=== PATIENT | female | born 1985 | race Caucasian/White ===

== ENCOUNTER 2024-09-24 14:43 | Inpatient (IN) | payer MEDICAID, SELFPAY ==
[2024-09-24 14:50] VITALS: BP 119/77; PULSE 91; RESP 18; TEMP 36.7; O2SAT 99; BMI 28.0
--- NOTE | 2024-09-24 14:52 | ED.C_ITS ---
HPI - Psych 2 General: Chief Complaint: Psychiatric Symptoms Stated Complaint: 96 Time Seen by Provider: 09/24/24 14:44 History of Present Illness: 39-year-old female who presents to the e mergency room on a 96-hour court ordered hold. She tells me she is not exactly sure why she was served. She says she was very embarrassed because she was served at work. She does tell me she had a history of alcohol and substance abuse but has been in remission for 5 years. She says that she was having menstrual issues and was very depressed and tearful and had called 911. She said she was then being cited for calling 911 but she is unsure why she is here. There are multiple affidavits signed by police. They states she has been calling 911 and an FBI agent and that she smelled like alcohol. It is unclear what she had called 911 or the FBI agent for but they feel she is a danger to herself and the business intelligence reporting analyst agreed Related Data Home Medications ?Medication ?Instructions ?Recorded ?Confirmed dextroamphetamine-amphetamine 10 10 mg PO DAILY 09/24/24 mg tablet (Adderall) paroxetine HCl 20 mg tablet (Paxil) 20 mg PO DAILY 12/1409/24/24 Review of Systems 2 Narrative: Constitutional symptoms: Negative except as documented in HPI. Skin symptoms: Negative except as documented in HPI. Eye symptoms: Negative except as documented in HPI. ENMT symptoms: Negative except as documented in HPI. Respiratory symptoms: Negative except as documented in HPI. Cardiovascular symptoms: Negative except as documented in HPI. Gastrointestinal symptoms: Negative except as documented in HPI. Genitourinary symptoms: Negative except as documented in HPI. Musculoskeletal symptoms: Negative except as documented in HPI. Neurologic symptoms: Negative except as documented in HPI. Psychiatric symptoms: Negative except as documented in HPI. Endocrine symptoms: Negative except as documented in HPI. Physical Exam 2 Narrative: EXAM NARRATIVE: General: Alert, no acute distress. Skin: Warm, dry. Head: Normocephalic, atraumatic. Neck: Supple, trachea midline. Eye: Extraocular movements are intact. Ears, nose, mouth and throat: mucosa moist. Cardiovascular: Regular, Normal peripheral perfusion. Respiratory: Lungs are clear to auscultation, respirations are non-labored, breath sounds are equal, Symmetrical chest wall expansion. Gastrointestinal: Soft, Nontender, Non distended Musculoskeletal: Normal ROM, no deformity. Neurological: Alert and oriented, No focal neurological deficit observed. Psychiatric: Cooperative, appropriate mood & affect. Patient currently denies any homicidal or suicidal ideation. Denies any hallucinations. Course 2 Vital Signs: Vital signs: Vital Signs Temperature 98.1 F 09/24/24 14:50 Pulse Rate 91 09/24/24 14:50 Respiratory Rate 18 09/24/24 14:50 Blood Pressure 119/77 09/24/24 14:50 Pulse Oximetry 99 09/24/24 14:50 Oxygen Delivery Me thod Room Air 09/24/24 14:50 MDM - Psych Medical Decision Making Medical decision making: Differential diagnosis for patient with reported psychosis with plan for psychiatric admission including but not limited to and based on the above HPI, review of systems and physical exam: concerns for infection, alcohol intoxication, cardiac issues or other medical problems prior to psychiatric admission. Orders placed to evaluate differential diagnosis based on the above differential, HPI and physical exam labwork, ekg ordered to evaluate the pathologies and to clear the patient medically prior to psychiatric admission EKG: Time 1550. Rate 73. Normal sinus rhythm, No ST-T changes, no ectopy, normal NC & QRS intervals, This was reviewed and interpreted by myself the ER physician at 1555. Lab Review: Laboratory results were reviewed and interpreted by myself the emergency room physician. - Medically cleared. - EKG shows no ischemic changes. - Blood alcohol level is negative, as well as salicylate and Tylenol. - Drug screen is negative - No signs of infection, urinalysis clear and white count is not elevated - No anemia. - BUN and creatinine are within normal limits. I reviewed the patient's medical record. Consultation: I spoke with Dr. Lambert who is on-call for psychiatry who agrees to admission Assessment and plan: Psychiatric issues -Admission to neuropsychiatric unit for continued evaluation and treatment. - All lab work was reviewed and interpreted personally by myself, the ER physician - Evaluation and treatment of this problem were appropriate in the emergency setting Lab Data 09/24/24 15:03 09/24/24 16:20 Laboratory Results WBC 11.45 10^3/uL (3.29-11.43) H 09/24/24 15:03 RBC 4.53 10^6/uL (3.85-5.65) 09/24/24 15:03 Hgb 14.10 g/dL (11.27-16.99) 09/24/24 15:03 Hct 43.9 % (36-47) 09/24/24 15:03 MCV 96.9 fl (85-98) 09/24/24 15:03 MCH 31.1 pg (27-33) 09/24/24 15:03 MCHC 32.1 g/dL (30-55) 09/24/24 15:03 RDW 11.9 % (12.1-15.1) L 09/24/24 15:03 Plt Count 239 10^3/cmm (157-399) 09/24/24 15:03 MPV 10.6 fL (7.4-10.4) H 09/24/24 15:03 Neut % (Auto) 72.9 % 09/24/24 15:03 Lymph % (Auto) 19.0 % 09/24/24 15:03 [place]ayson % (Auto) 7.0 % 09/24/24 15:03 Eos % (Auto) 0.5 % 09/24/24 15:03 Baso % (Auto) 0.3 % 09/24/24 15:03 Neut # (Auto) 8.34 10^3/uL (1.8-7.7) H 09/24/24 15:03 Lymph # (Auto) 2.2 10^3/uL (0.8-4.8) 09/24/24 15:03 Grayson # (Auto) 0.8 10^3/uL (0.2-0.9) 09/24/24 15:03 Eos # (Auto) 0.1 10^3/uL (0.0-0.8) 09/24/24 15:03 Baso # (Auto) 0.0 10^3/uL (0.0-0.1) 09/24/24 15:03 Nucleated RBC % (auto) 0 % 09/24/24 15:03 Nucleated RBCs # 0.0 /100WBC 09/24/24 15:03 Sodium Cancelled 09/24/24 15:03 Potassium Cancelled 09/24/24 15:03 Chloride Cancelled 09/24/24 15:03 Carbon Dioxide Cancelled 09/24/24 15:03 Anion Gap Cancelled 09/24/24 15:03 BUN Cancelled 09/24/24 15:03 Creatinine Cancelled 09/24/24 15:03 GFR Calculation Cancelled 09/24/24 15:03 Glucose Cancelled 09/24/24 15:03 Calculated Osmolality Cancelled 09/24/24 15:03 Calcium Cancelled 09/24/24 15:03 Total Bilirubin Cancelled 09/24/24 15:03 AST Cancelled 09/24/24 15:03 ALT Cancelled 09/24/24 15:03 Alkaline Phosphatase Cancelled 09/24/24 15:03 Total Protein Cancelled 09/24/24 15:03 Albumin Cancelled 09/24/24 15:03 Globulin Cancelled 09/24/24 15:03 TSH Cancelled 09/24/24 15:03 HCG, Qual Negative (Negative) 09/24/24 15:10 Urine Color Yellow (Yellow) 09/24/24 15:10 Urine Appearance Clear (CLEAR) 09/24/24 15:10 Urine pH 5.0 (5-7) 09/24/24 15:10 Ur Specific [place] 1.019 (1.005-1.030) 09/24/24 15:10 Urine Protein Negative (Negative) 09/24/24 15:10 Urine Glucose (UA) Negative (Normal) 09/24/24 15:10 Urine Ketones Trace (Negative) 09/24/24 15:10 Urine Blood Trace (Negative) A 09/24/24 15:10 Urine Nitrate Negative (Negative) 09/24/24 15:10 Urine Bilirubin Negative (Negative) 09/24/24 15:10 Urine Urobilinogen 0.2 mg/dL (Negative) 09/24/24 15:10 Ur Leukocyte Esterase Negative (Negative) 09/24/24 15:10 Urine RBC None /hpf (0-2) 09/24/24 15:10 Urine WBC 0-4 /hpf (0-5) H 09/24/24 15:10 Ur Squamous Epith Cells 10-15 /hpf (0-5) H 09/24/24 15:10 Amorphous Sediment Not Reportable 09/24/24 15:10 Urine Bacteria None /hpf (NONE) 09/24/24 15:10 Urine Mucus None /hpf 09/24/24 15:10 Salicylates Cancelled 09/24/24 15:03 Urine Opiates Screen Negative ng/mL (Negative) 09/24/24 15:10 Acetaminophen Cancelled 09/24/24 15:03 Ur Barbiturates Screen Negative ng/mL (Negative) 09/24/24 15:10 Ur Phencyclidine Scrn Negative ng/mL (Negative) 09/24/24 15:10 Ur Amphetamines Screen Negative ng/mL (Negative) 09/24/24 15:10 U Benzodiazepines Scrn Negative ng/mL (Negative) 09/24/24 15:10 Urine Cocaine Screen Negative ng/mL (Negative) 09/24/24 15:10 U Marijuana (THC) Screen Negative ng/mL (Negative) 09/24/24 15:10 Ethyl Alcohol Cancelled 09/24/24 15:03 No radiology studies performed this visit Discharge Plan Discharge Patient Disposition: Admitted As Inpatient Admit Provider: Eliel Lambert Clinical Impression: Acute psychosis Condition: Stable Coding Level of Care Code ED 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
[2024-09-24 15:13] LABS: Basophils % 0.3 %; Eosinophils # 0.1 10^3/uL (0.0-0.8); Eosinophils % 0.5 %; Hematocrit 43.9 % (36-47); Lymphocytes # 2.2 10^3/uL (0.8-4.8); Mean Corpuscular HGB Conc 32.1 g/dL (30-55); Mean Corpuscular Hemoglobin 31.1 pg (27-33); Mean Corpuscular Volume 96.9 fl (85-98); Mean Platelet Volume 10.6 fL (7.4-10.4); Monocytes # 0.8 10^3/uL (0.2-0.9); Neutrophils # 8.34 10^3/uL (1.8-7.7); Neutrophils % 72.9 %; Nucleated Red Blood Cells % 0 %; Platelet Count 239 10^3/cmm (157-399); Red Blood Count 4.53 10^6/uL (3.85-5.65); Red Cell Distribution Width 11.9 % (12.1-15.1); White Blood Count 11.45 10^3/uL (3.29-11.43)
--- NOTE | 2024-09-24 15:16 | PC.PHAR ---
Pt gave names of her medications and strength. Called [facility] in [place] and verified drug, strength, day supply and last fill dates.
--- NOTE | 2024-09-24 15:21 | PC.NURSE ---
96 hour hold rights read and reviewed with patient. Cuco from security present during reading of rights. Patient verbalized understandings and copy of rights given to patient.
[2024-09-24 15:22] LABS: Bilirubin Urine Negative (Negative); Blood Urine Trace (Negative); Glucose Urine UA Negative (Normal); Ketones Urine Trace (Negative); Leukocyte Esterase Urine Negative (Negative); Nitrate Urine Negative (Negative); Protein Urine Negative (Negative); Specific Gravity, Urine 1.019 (1.005-1.030); Urine Appearance Clear (CLEAR); Urine Color Yellow (Yellow); Urobilinogen Urine 0.2 mg/dL (Negative)
[2024-09-24 15:24] LABS: HCG Qualitative Urine. Negative (Negative)
[2024-09-24 15:28] LABS: Amphetamines Screen Urine Negative (Negative); Barbiturates Screen Urine Negative (Negative); Benzodiazepines Screen Urine Negative (Negative); Cocaine Screen Urine Negative (Negative); Opiate Screen Urine Negative (Negative); PCP Screen Urine Negative (Negative); THC Screen Urine Negative (Negative)
[2024-09-24 15:30] LABS: Slide Review Slide Review Perform
[2024-09-24 15:36] LABS: WBC Urine 0-4 /hpf (0-5)
[2024-09-24 15:37] LABS: Add Urine Culture? No
--- NOTE | 2024-09-24 15:50 | ECG_ITS ---
[facility] Test Date: 2024-09-24 Pat Name: Edith Stoddard Department: Room: Gender: Female Platemaker: : 1985 Requested By: Corin Beltrán Order Number: [id number] Gonzalez MD: Rubén Xiao M.D. Measurements Intervals [place] Rate: 73 P: 32 TX: 152 QRS: 44 QRSD: 88 T: 42 QT: 358 QTc: 396 Interpretive Statements SINUS RHYTHM No previous ECG available for comparison Electronically Signed On 09-27-2024 18:07:54 PROJECT ASSISTANT by Rubén Xiao M.D. [id number]
[2024-09-24 17:09] LABS: Alanine Aminotransferase 11 U/L (0-33); Albumin Level 4.4 g/dL (3.5-5.2); Alkaline Phosphatase 68 U/L (35-105); Anion Gap 15.5 (5-19); Aspartate Amino Transferase 15 U/L (0-32); Blood Urea Nitrogen 26 mg/dL (6-20); Calcium 9.2 mg/dL (8.5-10.5); Carbon Dioxide 22 mmol/L (22-29); Chloride 104 mmol/L (98-107); Creatinine Clr Calc Pharmacy 163.3051; Glomerular Filtration Rate 138.8 mL/min (90-130); Glucose 99 mg/dL (65-115); Osmolality Calculated 289 mOsm/kg (285-295); Potassium 4.5 mmol/L (3.5-5.1); Salicylate 0.4 mg/dL (3-10); Sodium 137 mmol/L (136-145); Thyroid Stimulating Hormone 1.11 uIU/mL (0.27-4.20); Total Bilirubin 0.2 mg/dL (0.15-1.2); Total Protein 7.4 g/dL (6.6-8.7)
[2024-09-24 17:10] LABS: Acetaminophen < 5.0 ug/mL (10-30); Alcohol Level < 10 mg/dL (0-10)
[2024-09-24 20:01] VITALS: BP 99/65; PULSE 74; O2SAT 95
[2024-09-24 20:23] VITALS: BP 99/65; PULSE 74; O2SAT 95
[2024-09-24 20:24] VITALS: BP 111/78; PULSE 68; RESP 18; TEMP 36.5; O2SAT 100
[2024-09-24 20:57] VITALS: BP 111/78; PULSE 68; RESP 18; TEMP 36.5; O2SAT 100
[2024-09-24] MEDS: ibuprofen 600 mg Tablet PO (20:59)
[2024-09-24] MEDS: hyDROXYzine 25 mg Capsule 50 MG PO (21:00)
[2024-09-25] MEDS: tizanidine 4 mg Tablet 2 MG PO ×3 (00:52→20:54)
[2024-09-25 06:00] VITALS: BP 92/57; PULSE 67; RESP 16; O2SAT 100
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
[2024-09-25] MEDS: flu vacc pf 24-25 (6 mos+) SYRINGE 45 MCG IM (10:02)
[2024-09-25] MEDS: ibuprofen 600 mg Tablet PO ×2 (12:00→17:21)
[2024-09-25 14:00] VITALS: BP 99/62; PULSE 86; RESP 18; TEMP 36.9; O2SAT 98
[2024-09-25] MEDS: hyDROXYzine 25 mg Capsule 50 MG PO (17:21)
[2024-09-25 20:28] VITALS: BP 100/64; PULSE 95; RESP 18; TEMP 36.6; O2SAT 98
[2024-09-26 06:00] VITALS: BP 96/67; PULSE 75; RESP 16; TEMP 36.8; O2SAT 98
[2024-09-26] MEDS: tizanidine 4 mg Tablet 2 MG PO (11:16)
[2024-09-26] MEDS: hyDROXYzine 25 mg Capsule 50 MG PO ×2 (11:17→21:27)
[2024-09-26] MEDS: ibuprofen 600 mg Tablet PO ×2 (11:17→17:02)
--- NOTE | 2024-09-26 12:03 | PC.NURSE ---
NEW ORDERS RECEIVED FROM TO RESTART PAXIL 20MG PO DAILY. ADDERALL IS STILL BEING HELD. DR. NICHOLSON WILL DECIDE IF THAT MEDICATION WILL BE RESTARTED. PT EDUCATED ON NEW ORDERS. VERBALIZED UNDERSTANDING AND SUPPORT VOICED.
[2024-09-26] MEDS: PARoxetine 20 mg Tablet PO (13:55)
[2024-09-26 14:00] VITALS: BP 92/58; PULSE 79; RESP 18; TEMP 37.1; O2SAT 98
--- NOTE | 2024-09-26 15:37 | P.NPUPN_ITS ---
Subjective NPU 2 Subjective: Patient presented today reporting that she is doing fine. He had a long discussion about her clearly psychotic and delusional interactions with the police and the [employer] and the timing of her steroid burst. 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 She denied any side effects or medication. Mental Status Exam 2 MSE Comments: This is an overweight versus obese white female in hospital scrubs with adequate grooming and but eye contact. No abnormal movements except for mild psychomotor agitation. Cooperative with exam in mild distress. Speech was increased rate and occasionally increased volume and pressured. Mood described as fine, affect is energetic. Thought process, linear. Thought content: patient denied current suicidal ideation or homicidal ideation, no delusions reported but clear grandiose, paranoid and persecutory delusions noted, and denies auditory or visual hallucinations. Reported anxiety and history of depression, with exacerbation of symptoms during Paxil withdrawal and PMS. No current suicidal ideation or thoughts of harming others. Tearful and sad during withdrawal, but current mood is good. Concerns about memory and behavior during the past month, possibly related to steroid-induced psychosis. Attention and concentration are limited and memory appeared unreliable but none were formally tested. She is alert and oriented times person and place. Insight, judgment and impulse control are impaired. Vitals/I&O/Wt Last Vital Signs Temp 98.2 F 09/26/24 06:00 Pulse 75 09/26/24 06:00 Resp 16 09/26/24 06:00 BP 96/67 09/26/24 06:00 Pulse Ox 98 09/26/24 06:00 O2 Del Method Room Air 09/26/24 06:00 Data NPU 09/24/24 15:03 09/24/24 16:20 A&P Assessment and plan (1) ADHD: (2) PTSD (post-traumatic stress disorder): (3) Acute psychosis: Plan This is a 39year old white woman with no documented history of mental health or addiction issues in our system but reports of mental health and addiction challenges per staff reports and her confirmation. She presents with a negative UDS but active psychosis. Recent use of a steroid which also may have contributed to the situation. The patient is experiencing psychosis, potentially secondary to steroid use. There is a history of anxiety and ADHD, which have been persistent since adolescence. The recent discontinuation of Paxil for four days has exacerbated symptoms of sadness and anxiety, but the psychotic symptoms appear to have been present prior to this discontinuation. The patient has a history of substance use, including alcohol and methamphetamine, but has been sober since June 29 of the previous year. There is no history of suicidal attempts, but there have been suicidal thoughts in the past, which Paxil has helped manage. The patient has not experienced paranoia or hallucinations unrelated to drug use. 1. Continue current medications. Will hold any amphetamine secondary to concerns for exacerbation of or cause of psychosis. Start Abilify 5 mg p.o. q. daily 2. Encourage individual, group and milieu therapy. 3. Continue q-15 minute check for safety. 4. Encourage sober living treatment after discharge at the highest level of care to which she is willing to commit. 5. Obtain collateral information. 6. Evaluate against the backdrop of the 96-hour hold. PDMP PDMP Reviewed: Not Reviewed Involuntary Hold Information 2 Hold Status: Legal Status: 96 Hour Hold Date/Time Hold Expires: 09/30/2024 @ 1500 Attestations NPU 2 Medical Necessity Statement*: Inpatient hospitalization is medically necessary and the clinically appropriate intervention at this time. We will monitor medications and make changes as indicated. Likely length of stay is three to five days. Coding Level of Care Code Acute Code for [facility] Fwd Diagnoses ADHD F90.9 PTSD (post-traumatic stress disorder) F43.10 Acute psychosis F23
[2024-09-26 19:55] VITALS: BP 112/72; PULSE 72; RESP 18; TEMP 36.9; O2SAT 99
[2024-09-26] MEDS: acetaminophen 325 mg Tablet 650 MG PO (21:26)
[2024-09-27] MEDS: tizanidine 4 mg Tablet 2 MG PO ×2 (03:07→15:18)
[2024-09-27 06:00] VITALS: BP 99/67; PULSE 76; RESP 18; TEMP 36.6; O2SAT 99
[2024-09-27] MEDS: ibuprofen 600 mg Tablet PO ×3 (09:12→22:18)
[2024-09-27] MEDS: PARoxetine 20 mg Tablet PO (09:12)
[2024-09-27] MEDS: ARIPiprazole 10 mg Tablet 5 MG PO (09:12)
[2024-09-27] MEDS: lidocaine 5% Patch 1 PATCH TOPICAL ×2 (09:48→21:00)
[2024-09-27 14:00] VITALS: BP 115/72; PULSE 86; RESP 16; TEMP 37.2; O2SAT 97
[2024-09-27] MEDS: hyDROXYzine 25 mg Capsule 50 MG PO ×2 (15:18→22:18)
--- NOTE | 2024-09-27 17:43 | P.NPUPN_ITS ---
Subjective NPU 2 Subjective: Patient presented today reporting that she is doing okay with the medication. She has taken it in the past and feels confident that she will tolerate it well. Her greatest concern is she did not really want to go back on a medication like that. She felt she has been doing so well. We discussed that the purpose of the medication is to help with recovery from a clear psychotic episode and that since it has helped her feel much better in the past it could help her overall and she may want to continue it but that if this is in fact a steroid-induced psychotic episode it would be reasonable for her and her doctor to decide not to refill the medication when she goes to her first appointment after discharge. She denied any side effects to the medication. Mental Status Exam 2 MSE Comments: This is an overweight versus obese white female in hospital scrubs with adequate grooming and but eye contact. No abnormal movements except for mild psychomotor agitation. Cooperative with exam in mild distress. Speech was increased rate and occasionally increased volume and pressured. Mood described as fine, affect is energetic. Thought process, linear. Thought content: patient denied current suicidal ideation or homicidal ideation, no delusions reported but clear grandiose, paranoid and persecutory delusions noted, and denies auditory or visual hallucinations. Reported anxiety and history of depression, with exacerbation of symptoms during Paxil withdrawal and PMS. No current suicidal ideation or thoughts of harming others. Tearful and sad during withdrawal, but current mood is good. Concerns about memory and behavior during the past month, possibly related to steroid-induced psychosis. Attention and concentration are limited and memory appeared unreliable but none were formally tested. She is alert and oriented times person and place. Insight, judgment and impulse control are impaired. Vitals/I&O/Wt Last Vital Signs Temp 98.4 F 09/27/24 19:55 Pulse 83 09/27/24 19:55 Resp 16 09/27/24 19:55 BP 113/69 09/27/24 19:55 Pulse Ox 97 09/27/24 19:55 O2 Del Method Room Air 09/27/24 19:55 Data NPU 09/24/24 15:03 09/24/24 16:20 A&P Assessment and plan (1) ADHD: (2) PTSD (post-traumatic stress disorder): (3) Acute psychosis: Plan This is a 39year old white woman with no documented history of mental health or addiction issues in our system but reports of mental health and addiction challenges per staff reports and her confirmation. She presents with a negative UDS but active psychosis. Recent use of a steroid which also may have contributed to the situation. The patient is experiencing psychosis, potentially secondary to steroid use. There is a history of anxiety and ADHD, which have been persistent since adolescence. The recent discontinuation of Paxil for four days has exacerbated symptoms of sadness and anxiety, but the psychotic symptoms appear to have been present prior to this discontinuation. The patient has a history of substance use, including alcohol and methamphetamine, but has been sober since June 29 of the previous year. There is no history of suicidal attempts, but there have been suicidal thoughts in the past, which Paxil has helped manage. The patient has not experienced paranoia or hallucinations unrelated to drug use. 1. Continue current medications. Will hold any amphetamine secondary to concerns for exacerbation of or cause of psychosis. Started Abilify 5 mg p.o. q. daily. Advised patient that we would recommend her taking it for the month when she gets the 30-day supply at discharge and working with her outpatient team to decide whether or not continuing it would be in her best interest. 2. Encourage individual, group and milieu therapy. 3. Continue q-15 minute check for safety. 4. Encourage sober living treatment after discharge at the highest level of care to which she is willing to commit. 5. Obtain collateral information. 6. Evaluate against the backdrop of the 96-hour hold. PDMP PDMP Reviewed: Not Reviewed Involuntary Hold Information 2 Hold Status: Legal Status: 96 Hour Hold Date/Time Hold Expires: 09/30/2024 @ 1500 Attestations NPU 2 Medical Necessity Statement*: Inpatient hospitalization is medically necessary and the clinically appropriate intervention at this time. We will monitor medications and make changes as indicated. Likely length of stay is 2-4 days. Coding Level of Care Code Acute Code for [facility] Fwd Diagnoses ADHD F90.9 PTSD (post-traumatic stress disorder) F43.10 Acute psychosis F23
[2024-09-27] MEDS: acetaminophen 325 mg Tablet 650 MG PO (19:54)
[2024-09-27 19:55] VITALS: BP 113/69; PULSE 83; RESP 16; TEMP 36.9; O2SAT 97
[2024-09-28 06:00] VITALS: BP 116/66; PULSE 76; RESP 16; TEMP 36.8; O2SAT 98; BMI 29.4
[2024-09-28] MEDS: tizanidine 4 mg Tablet 2 MG PO ×2 (06:30→18:34)
[2024-09-28] MEDS: ARIPiprazole 10 mg Tablet 5 MG PO (08:26)
[2024-09-28] MEDS: PARoxetine 20 mg Tablet PO (08:26)
[2024-09-28 14:00] VITALS: BP 102/68; PULSE 99; RESP 17; TEMP 36.5; O2SAT 97
[2024-09-28] MEDS: ibuprofen 600 mg Tablet PO (14:27)
--- NOTE | 2024-09-28 16:22 | P.NPUPN_ITS ---
Subjective NPU 2 Subjective: 39-year-old female admitted with psychos is likely associated with use of high- dose dexamethasone. Patient had reported feeling better. She had endorsed a history of past substance use but reported more than a year of sobriety. She had reported that she had hopes of returning home soon. She reported no side effects from her medication regimen. She had reported a past history of Adderall use for ADHD but stated that she had been compliant with her oral 10 mg of Adderall and stated that she had previously been prescribed Adderall extended release without any issue. She had reported no prior history of psychosis. She requested restarting paxil to help with anxiety and depression. Mental Status Exam 2 MSE Comments: This is an overweight versus obese white female in hospital scrubs with adequate grooming and but eye contact. No abnormal movements except for mild psychomotor agitation. She was cooperative with exam in mild distress. Speech was normal in rate, rhythm and volume. Mood described as good. Her affect is euthymic. Thought process was linear. Thought content: patient denied current suicidal ideation or homicidal ideation, no delusions reported and no clear evidence of grandiosity or ideas of reference today. No current suicidal ideation or thoughts of harming others. Attention and concentration are limited and memory appeared unreliable but none were formally tested. She is alert and oriented times person and place and time. Insight was improving. Her judgment and impulse control appeared improved. Vitals/I&O/Wt Last Vital Signs Temp 97.7 F 09/28/24 14:00 Pulse 99 09/28/24 14:00 Resp 17 09/28/24 14:00 BP 102/68 09/28/24 14:00 Pulse Ox 97 09/28/24 14:00 O2 Del Method Room Air 09/28/24 06:00 Weight last 48 hrs Weight 82.724 kg Data NPU 09/24/24 15:03 09/24/24 16:20 A&P Assessment and plan (1) ADHD: (2) PTSD (post-traumatic stress disorder): (3) Acute psychosis: Plan This is a 39year old white woman with no documented history of mental health or addiction issues in our system but reports of mental health and addiction challenges per staff reports and her confirmation. She presents with a negative UDS but active psychosis. Recent use of a steroid which also may have contributed to the situation. The patient is experiencing psychosis, potentially secondary to steroid use. There is a history of anxiety and ADHD, which have been persistent since adolescence. The recent discontinuation of Paxil for four days has exacerbated symptoms of sadness and anxiety, but the psychotic symptoms appear to have been present prior to this discontinuation. The patient has a history of substance use, including alcohol and methamphetamine, but has been sober since June 29 of the previous year. There is no history of suicidal attempts, but there have been suicidal thoughts in the past, which Paxil has helped manage. The patient has not experienced paranoia or hallucinations unrelated to drug use. 1. Continue current medications. Continue Abilify 5mg along with Paxil 20mg daily. 2. Encourage individual, group and milieu therapy. 3. Continue q-15 minute check for safety. 4. Encourage sober living treatment after discharge at the highest level of care to which she is willing to commit. 5. Obtain collateral information. 6. Evaluate against the backdrop of the 96-hour hold. PDMP PDMP Reviewed: Not Reviewed Involuntary Hold Information 2 Hold Status: Legal Status: 96 Hour Hold Date/Time Hold Expires: 09/30/2024 @ 1500 Attestations NPU 2 Medical Necessity Statement*: Inpatient hospitalization is medically necessary and the clinically appropriate intervention at this time. We will monitor medications and make changes as indicated. Likely length of stay is 1-2 days. Coding Level of Care Code Acute Code for [facility] Fwd Diagnoses ADHD F90.9 PTSD (post-traumatic stress disorder) F43.10 Acute psychosis F23
[2024-09-28] MEDS: hyDROXYzine 25 mg Capsule 50 MG PO (18:32)
[2024-09-28] MEDS: acetaminophen 325 mg Tablet 650 MG PO (18:32)
[2024-09-28 19:55] VITALS: BP 109/69; PULSE 83; RESP 18; TEMP 36.8; O2SAT 98
[2024-09-29 06:00] VITALS: BP 102/62; PULSE 76; RESP 16; TEMP 36.9; O2SAT 94
[2024-09-29] MEDS: tizanidine 4 mg Tablet 2 MG PO (08:36)
[2024-09-29] MEDS: hyDROXYzine 25 mg Capsule 50 MG PO (08:36)
[2024-09-29] MEDS: PARoxetine 20 mg Tablet PO (08:36)
[2024-09-29] MEDS: ARIPiprazole 10 mg Tablet 5 MG PO (08:36)
[2024-09-29] MEDS: ibuprofen 600 mg Tablet PO ×2 (08:36→15:10)
--- NOTE | 2024-09-29 08:37 | PC.NURSE ---
Addendum entered by Caitlin Dang LPN 09/29/24 10:17: prn meds effective no further c/o anxiety or muscle spasms currently Original Note: PRN VISTARIL & ZANAFLEX VISTARIL 50 MG GIVEN PO PER PT C/O STATED ANXIETY & ZANAFLEX 2 MG GIVEN PO PER PT C/O MUSCLE SPASMS. WILL CONT TO MONITOR
--- NOTE | 2024-09-29 08:42 | PC.NURSE ---
REFUSED SCHEDULED LIDOCAIN PATCH TODAY, SAYS IT DOESNT HELP AND MAKES THE PAIN WORSE
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
[2024-09-29 13:32] VITALS: BP 102/62; PULSE 76; RESP 16; TEMP 36.9; O2SAT 94
== END 2024-09-29 15:30 | disposition home or self-care (01) | DRG 885 ==
LOC: ER 15:48 → NP 16:17
PROVIDERS: Admitting Provider Psychiatry & Neurology Psychiatry; Emergency Provider Emergency Medicine; Visit Provider Psychiatry & Neurology Psychiatry
DX: F23 Brief psychotic disorder (principal); F90.9 Attention-deficit hyperactivity disorder, unspecified type; F43.10 Post-traumatic stress disorder, unspecified; T38.0X5A Adverse effect of glucocorticoids and synthetic analogues, initial encounter; E66.9 Obesity, unspecified; Z68.29 Body mass index [BMI] 29.0-29.9, adult; N94.3 Premenstrual tension syndrome; T43.226A Underdosing of selective serotonin reuptake inhibitors, initial encounter; T43.626A Underdosing of amphetamines, initial encounter; Z81.8 Family history of other mental and behavioral disorders; F17.290 Nicotine dependence, other tobacco product, uncomplicated
CPT/HCPCS: 36415; 80053; 80306; 80307; 81001; 81025; 84443; 85025; 90471; 90686; 93005; 97150; 97165; 99285; J9999